=== PATIENT | male | born 1995 | race Caucasian/White ===

== ENCOUNTER 2017-09-29 16:23 | Emergency (ER) | payer SELFPAY ==
[2017-09-29 16:51] LABS: Hemoglobin 16.9 g/dL (14.0-18.0); Mean Corpuscular HGB CONC 36.1 g/dL (32.0-36.0); Mean Corpuscular Volume 91.2 fL (78.0-98.0); Mean Platelet Volume 7.2 fL (7.4-10.4); Platelet Count 250 thou/uL (130-400); RBC Distribution Width 11.7 % (11.5-14.5); Red Blood Cell (RBC) Count 5.13 mill/uL (4.00-5.20); White Blood Cell (WBC) Count 20.1 thou/uL (4.8-10.8)
--- NOTE | 2017-09-29 17:08 | RAD ---
CHEST ONE VIEW: 09/29/17 HISTORY: Dyspnea. COMPARISON: 09/28/17. FINDINGS: Cardiac silhouette is magnified by projection. Pulmonary vasculature accentuated by shallow inspirati on. No lobar consolidation, or evidence of pneumothorax. monitoring manager leads overlie the chest. IMPRESSION: No active cardiopulmonary abnormalities are demonstrated. POS: [place]
[2017-09-29 17:09] LABS: Band 13 % (5-11); Lymphocytes 7 % (28-48); MDiff Complete? YES; Monocytes 2 % (0-4); Neutrophil 76 % (31-61); PLT Morphology Comment Appears Adequate; RBC Morphology Normal; Reactive Lymphocytes 2 % (0-10)
[2017-09-29 17:12] LABS: ALT (SGPT) 44 U/L (8-55); AST (SGOT) 21 U/L (10-45); Albumin 4.7 g/dL (3.5-5.0); Alkaline Phosphatase 91 U/L (Less than 750); Anion Gap 13 mmol/L (10-20); BUN (Urea Nitrogen) 16 mg/dL (8.4-21.0); Bilirubin, Total 0.8 mg/dL (0.2-1.2); CK (CPK) 148 U/L (30-200); Calc. Creatinine Clearance 0 mL/min (70-130); Calcium 9.8 mg/dL (7.8-10.44); Carbon Dioxide 25 mmol/L (22-29); Chloride 105 mmol/L (98-107); Estimated GFR-MDRD Greater than 90; Glucose 129 mg/dL (70-105); Lipase 7 U/L (8-78); Potassium 4.3 mmol/L (3.5-5.1); Protein, Total 7.7 g/dL (6.0-8.3); Sodium 139 mmol/L (136-145)
[2017-09-29 17:16] LABS: CKMB 0.5 ng/mL (0-6.6); Troponin I Less than 0.010 ng/mL (< 0.028)
[2017-09-29] MEDS ORDERED: HYDROcodone/Acetaminophen 5/325 mg Tablet ONE (17:45)
--- NOTE | 2017-10-03 11:54 | EKG ---
Test Reason : Blood Pressure : / mmHG Vent. Rate : 059 BPM Atrial Rate : 059 BPM P-R Int : 118 ms QRS Dur : 094 ms QT Int : 392 ms P-R-T Axes : 020 042 016 degrees QTc Int : 388 ms Sinus bradycardia with sinus arrhythmia with occasional Premature ventricular complexes Otherwise normal ECG Confirmed by MASON PEREZ ([id number]), restaurant expeditor SONIDO LIMA ([id number]) on 10/03/2017 11:53:59 AM Referred By: Confirmed By:MASON PEREZ
== END 2017-09-29 17:55 | disposition home or self-care (01) ==
LOC: ERS 16:23
DX: J20.9 Acute bronchitis, unspecified (principal); F32.9 Major depressive disorder, single episode, unspecified; F17.220 Nicotine dependence, chewing tobacco, uncomplicated
CPT/HCPCS: 71045; 80053; 82553; 83690; 84484; 85025; 93005

== ENCOUNTER 2019-08-11 23:12 | Emergency (ER) | payer SELFPAY ==
[2019-08-11 23:54] LABS: #Basophils 0.1 thou/uL (0.0-0.2); #Eosinphils 0.2 thou/uL (0.0-0.7); #Lymphocytes 1.6 thou/uL (1.20-3.40); #Monocytes 0.9 thou/uL (0.11-0.59); #Neutrophils 5.8 thou/uL (1.40-6.50); %Basophils 0.9 % (0.0-1.0); %Eosinophils 1.8 % (0.0-10.0); %Lymphocytes 18.3 % (21.0-51.0); %Monocytes 11.1 % (0.0-10.0); %Neutrophils 67.9 % (42.0-75.0); Hemoglobin 17.3 g/dL (14.0-18.0); Mean Corpuscular HGB CONC 35.5 g/dL (32.0-36.0); Mean Corpuscular Hemoglobin 32.4 pg (27.0-31.0); Mean Corpuscular Volume 91.3 fL (78.0-98.0); Platelet Count 199 thou/uL (130-400); RBC Distribution Width 11.8 % (11.5-14.5); Red Blood Cell (RBC) Count 5.34 mill/uL (4.70-6.10); White Blood Cell (WBC) Count 8.5 thou/uL (4.8-10.8)
[2019-08-12 00:17] LABS: ALT (SGPT) 62 U/L (8-55); AST (SGOT) 43 U/L (5-34); Albumin 4.5 g/dL (3.5-5.0); Alkaline Phosphatase 98 U/L (40-110); Anion Gap 12 mmol/L (10-20); BUN (Urea Nitrogen) 10 mg/dL (8.9-20.6); Bilirubin, Total 0.5 mg/dL (0.2-1.2); Calc. Creatinine Clearance 0 mL/min (70-130); Calcium 9.5 mg/dL (7.8-10.44); Carbon Dioxide 27 mmol/L (22-29); Chloride 105 mmol/L (98-107); Estimated GFR-MDRD 81; Globulin 2.8 g/dL (2.4-3.5); Glucose 84 mg/dL (70-105); Lipase 11 U/L (8-78); Protein, Total 7.3 g/dL (6.0-8.3); Sodium 140 mmol/L (136-145)
[2019-08-12] MEDS ORDERED: Morphine 4 MG/ML VIAL ONE (00:25)
[2019-08-12] MEDS ORDERED: Ondansetron PF 4 MG/2 ML Vial ONE (00:25)
[2019-08-12 00:30] LABS: Bilirubin Negative (Negative); Blood, Urine Negative (Negative); Clarity Clear (Clear); Glucose, Urine (Dipstick) Normal (Negative); Leukocyte Negative Leu/uL (Negative); Nitrite Negative (Negative); Protein, Urine (Dipstick) 20 mg/dL (Neg-Trace)
--- NOTE | 2019-08-12 08:27 | CT ---
PRELIMINARY REPORT/[facility]/EMERGENCY AFTER HOURS PROCEDURE CT SCAN OF THE ABDOMEN AND PELVIS WITH IV CONTRAST CLINICAL HISTORY: RUQ pain for 5 days. Increased pain after meals. TECHNIQUE: Axial images obtained. Coronal images obtained. Sagittal images obtained. Exam is performe d with administration of 95 mL of Isovue-370 intravenous contrast. Per PQRS, CT exam is performed usi ng one or more of the following dose reduction technique: Automated exposure control, adjustment of m A and/or KV according to patient size, or use of iterative reconstruction techniques. COMPARISON: None. FINDINGS: Suboptimal evaluation due to motion artifact. A normal appendix is seen. The rest of the s olid organs, viscera, and bones are unremarkable. IMPRESSION: Negative for acute process in the abdomen or pelvis within the limits of the exam. No CT evidence for cholecystitis or pancreatitis. ELECTRONICALLY SIGNED BY: Gabe Crouch MD Aug 12, 2019 1:07:58 AM CDT FINAL REPORT EMERGENT AFTER HOURS CT ABDOMEN AND PELVIS WITH CONTRAST: FINDINGS/IMPRESSION: I agree with the findings and impression given in the preliminary report per [facility] physici an. There is o evidence of acute intraabdominal/pelvic abnormality. However, there is slight promin ence of the mesenteric lymph nodes which could be secondary to mesenteric adenitis. POS: [facility]
[2019-08-12] MEDS ORDERED: Iopamidol 370 76% 100 ML VIAL ONE (10:02)
== END 2019-08-12 02:18 | disposition home or self-care (01) ==
LOC: ERS 23:12
DX: R10.11 Right upper quadrant pain (principal); R11.2 Nausea with vomiting, unspecified; R19.7 Diarrhea, unspecified; F41.9 Anxiety disorder, unspecified; F32.9 Major depressive disorder, single episode, unspecified; F17.210 Nicotine dependence, cigarettes, uncomplicated
CPT/HCPCS: 36415; 74177; 80053; 81003; 83690; 85025; 96374; 96375; J2270; J2405; Q9967